=== PATIENT | female | born 1960 | race Caucasian/White ===

== ENCOUNTER 2020-03-17 15:50 | Emergency (ER) | payer OTHER ==
[2020-03-17 16:25] LABS: Absolute Lymphocytes (CBC) 2.5 K/uL (0.7-4.9); Basophils % 1.1 % (0-1.3); Hematocrit 43.8 % (36.0-45.0); Lymphocytes % 23.8 % (15.3-44.8); MPV 9.1 fL (7.6-11.3); RBC Red Blood Cell Count 4.56 M/uL (3.86-4.86)
[2020-03-17] MEDS ORDERED: MAGNESIUM SULFATE 1 gm IVPB 1 GM/100 ML BAG IV ONE (16:28)
--- NOTE | 2020-03-17 16:46 | RAD REPORT ---
EXAM DESCRIPTION: RAD - Chest Single View - 03/17/2020 4:33 pm CLINICAL HISTORY: DYSPNEA COMPARISON: Two view chest October 2012 TECHNIQUE: AP portable chest image was obtained 03/17/2020 4:33 pm . FINDINGS: No focal mass or consolidation. Interstitial pattern is similar to slightly increased over comparison. Heart and vasculature are normal. No measurable pleural effusion and no pneumothorax. No acute bony abnormality seen. No acute aortic findings suspected. IMPRESSION: Mild interstitial edema or infiltrate suspected, superimposed on baseline chronic patter n. No focal mass or consolidation.
[2020-03-17 16:51] LABS: Potassium 3.6 mmol/L (3.5-5.1)
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
[2020-03-17] MEDS ORDERED: AZITHROMYCIN 250 MG TAB ONE (17:35)
[2020-03-17] MEDS ORDERED: IPRATROPIUM BROM 0.5MG/2.5ML ONE (17:36)
[2020-03-17] MEDS ORDERED: ALBUTEROL 2.5 MG/3 ML NEB SOL ONE (17:36)
== END 2020-03-17 18:47 | disposition home or self-care (01) ==
LOC: ER 15:50
DX: J40 Bronchitis, not specified as acute or chronic (principal); I10 Essential (primary) hypertension; F17.210 Nicotine dependence, cigarettes, uncomplicated; Z88.0 Allergy status to penicillin
CPT/HCPCS: 85025; 80048; 36415; 82947; 71045; J3475; 96374; 99285